=== PATIENT | male | born 1945 | race Hispanic/Latino ===

== ENCOUNTER 2024-08-24 07:50 | Outpatient (CLI) | payer MEDICARE, OTHER, SELFPAY ==
--- NOTE | 2024-09-13 09:19 | P.SLEEP_ITS ---
Sleep Study Date of Study: 08/24/24 Ordering Provider: ADA,LEV Ramirez Interpreting Physician: Ginger Ndiaye, DO Sleep Study Type: Polysomnogram Height: 1.83 m Weight: 65.771 kg Body Mass Index: 19.6 Neck Circumference (inches): 15 Hewlett: 7 Reason for Sleep Study Previously diagnosed sleep apnea but failed CPAP Sleep History The patient is an 79-year-old male with previously diagnosed sleep apnea that had a sleep study ordered by his ENT to requalify for treatment. The patient denies awakening from sleep short of breath. He denies awakening at night with heartburn, belching or cough. He frequently snores and is frequently loud enough that others complain. He denies having trouble sleeping when he has a cold. He denies waking up gasping for air throughout the night. He frequently has breathing problems at night observed by others. He denies sweating excessively at night. He denies having heart palpitations or irregular heartbeats during the night. He denies falling asleep during the day and while driving. He denies sleep paralysis, cataplexy and hypnagogic / hypnopompic hallucinations. He denies having trouble at school or work due to sleepiness. He denies feeling afraid of going to sleep. He denies having nightmares. He rarely remembers his dreams. He occasionally feels sad, depressed and anxious. He denies having muscular tension. He denies noticing parts of his body jerk. He denies kicking during the night. He rarely has crawling and aching feelings in his legs but never has leg pain during the night. He denies grinding his teeth during sleep and denies awakening with morning jaw pain. He denies being bothered by pain during the day and denies being awakened by pain during the night. He denies waking up feeling stiff in the morning. He denies waking up with sore or achy muscles. He denies waking up with pain in the neck, spine or other joints. He goes to bed at 10:00 p.m. on weekdays and weekends. He is able to fall asleep immediately. He wakes up 3-5 times throughout the night to urinate and is able to fall back asleep within a few minutes. He wakes up at 7:00 a.m. on both weekdays and weekends. He typically gets 9 hours of sleep per night. He does not stay in bed after waking up in the morning. He currently lives with his and adult child. He denies consuming any caffeinated beverages within 2 hours of bedtime. He denies engaging in physical exercise before bedtime. He will watch television before falling asleep. He will take naps in the afternoon or the evening and they are refreshing. He consumes 3-5 cups of a caffeinated beverage per day. He consumes 1 alcoholic beverage per day. He denies tobacco and recreational drug use. REPLACED BY [facility] Past Medical History Medical History LESA (obstructive sleep apnea) Sleep Procedure A full night polysomnogram using the [employer] multi-channel system recorded the standard physiologic parameters including EEG, EOG, submentalis EMG, anterior tibialis EMG, EKG, body position, nasal and oral airflow using nasal pressure sensor and thermistor.? Respiratory parameters of chest and abdominal movements were recorded with Respiratory Inductance Plethysmography belts. Oxygen saturation was recorded by pulse oximetry. Video monitoring was also performed. Sleep stages, periodic limb movements, and EEG arousals were scored in 30 second epochs according to the criteria of the AASM Scoring Manual. The Apnea-Hypopnea Index was calculated using [facility] guidelines for definition of hypopnea with 4% O2 desaturations while scoring respiratory events. Sleep Architecture The total recording time was 435.8 minutes.? The total sleep time was 238.0 minutes. Sleep latency was 1.8 minutes. REM latency was 203.5 minutes. Sleep efficiency was 54.6%. The patient had 31 awakenings for an awakening index of 7.8. Wake after sleep onset time was 196.0 minutes. The patient spent 51.0 minutes, 21.4% of total sleep time in Stage N1. The patient spent 176.0 minutes, 73.9% in Stage N2. The patient spent 0.0 minutes, 0.0% in Stage N3. The patient spent 11.0 minutes, 4.6% in Stage REM sleep. Respiratory Analysis The patient had 16 hypopneas, 105 obstructive apneas, 64 mixed apneas, and 10 central apneas for an overall Apnea Hypopnea Index of 49.2. The REM Apnea Hypopnea Index was 54.5. The NREM Apnea Hypopnea Index was 48.9. The patient had a Central Apnea Hypopnea Index of 2.5. There was no evidence of Ramu-Bernabe Respirations. Arousals There were 218 total arousals for an arousal index of 55.0. There were 51 spontaneous arousals for an index of 12.9. There were 150 arousals due to respiratory events for an index of 37.8. There were 12 arousals due to periodic limb movements for an index of 3.0.? There were 7 arousals due to isolated limb movements for an index of 1.8. Periodic Limb Movements The patient had 34 isolated limb movements with an index of 8.6. The patient had 24 periodic limb movements with an index of 6.1. Patient had a total of 58 limb movements with a total limb movement index of 14.6. Oximetry Data The patient had an average oxygen saturation of 95.0% in sleep with a minimum oxygen saturation of 82.0% and a maximum oxygen saturation of 100.0%. The patient had 138 oxygen desaturations that were 4% or greater resulting in an Oxygen Desaturation Index of 34.8.? The patient spent 3.9 minutes, 0.9% of total sleep time with an oxygen saturation below 88%. Snoring Profile Snoring was present intermittently throughout the study. Cardiac Profile The EKG showed normal sinus rhythm with rare PVCs. The patient had an average pulse rate of 56.1 bpm with a minimum pulse of rate of 46.0 bpm and a maximum pulse rate of 86.0 bpm.? EEG Profile No signs of seizure activity seen. Assessment and Plan Assessment and Plan (1) LESA (obstructive sleep apnea): Code(s): G47.33 - Obstructive sleep apnea (adult) (pediatric) Status: Acute Assessment and Plan: The patient had an overall AHI of 49.2 with desaturation down to 82%. This is consistent with severe sleep apnea. I recommend that the patient have a CPAP titration study with the use of a hypnotic (Lunesta 2-3 mg or Ambien 5-10 mg) to ensure we obtain enough sleep data and find an optimal pressure. He had a sleep efficiency of 54.6% during the study so it is highly recommended that he have a sleep aid available for this next study. Data The data obtained during this sleep study is adequate for interpretation. Certification This sleep study has been reviewed by a board certified sleep medicine physician.
[2024-09-13 09:23] VITALS: BMI 19.6
== END 2024-08-25 07:39 | disposition home or self-care (01) ==
LOC: ANHCSM 07:52
PROVIDERS: PCP Internal Medicine; Referring Provider Psychiatry & Neurology Neurology; Visit Provider Physician Assistant
DX: G47.33 Obstructive sleep apnea (adult) (pediatric) (principal)
CPT/HCPCS: 95810